=== PATIENT | male | born 1945 | race Caucasian/White ===

== ENCOUNTER 2023-10-30 07:09 | Day surgery (SDC) | payer MEDICARE, OTHER, SELFPAY ==
[2023-10-29 14:36] VITALS: BMI 28.7
[2023-10-30] MEDS: ACETAMINOPHEN 325 MG TABLET 975 MG PO (07:46)
[2023-10-30] MEDS: LACTATED RINGERS 1,000 ML 42 ML IV (07:46)
[2023-10-30] MEDS: OXYMETAZOLINE NASAL SPRAY 30 ML 2 SPRAYS NASAL ×2 (07:47→08:40)
[2023-10-30 07:50] VITALS: BP 154/97; PULSE 69; RESP 16; TEMP 36.8; O2SAT 97; BMI 30.1
--- NOTE | 2023-10-30 08:09 | PM.PREOP ---
Pre-operative Note Interval Note History & Physical reviewed/Exam performed by Physician: Yes Changes to H&P: Yes
--- NOTE | 2023-10-30 08:09 | PM.OP.1 ---
Operative Date/Time/Diagnoses Date of procedure: 10/30/23 Time of procedure: 09:11 Pre-op diagnosis: Recurrent, refractory left epistaxis Post-op diagnosis: same Procedure & Clinicians Procedure: Left endoscopic control of epistaxis Same procedure as scheduled: Yes Indications: 78 Year old with the above diagnoses incompletely managed with prior therapy presents for the above procedure. Following discussion of the material risks benefits complications and alternatives, the patient elected to proceed. Surgeon: Darion Troy Anesthesia Type: General Operative Notes Findings: 1-2 mm raised vascular area left anterior inferior meatus, lateral surface of the inferior turbinate, completely ablated. No other bleeding sources seen. Estimated Blood Loss (mL): 2 Procedure in detail: Following identification and confirmation of consent, as well as preoperative Afrin, the patient was brought to the operating suite and general mask anesthesia was administered. Cotton with 4% lidocaine and Afrin was placed over the anterior septum. The 4mm 30 degree and 70 degree rigid nasal endoscopes were utilized after clot removal to visualize the suspected area of bleeding on the lateral surface of the inferior turbinate anteriorly but just proximal to the prior cauterized area. The head of the inferior turbinate was medialized to improve visualization. Suction electrocautery on a setting of 15 was used to ablate the medial surface of the inferior turbinate under endoscopic guidance. Multiple small pieces of Surgicel were placed in the inferior meatus followed by a few pieces of Surgifoam. I then used a small amount of 1% lidocaine 1 100,000 epinephrine to anesthetize the area. A cotton ball saturated with Polysporin was placed anteriorly to occlude the nostril. He was awakened in the operating room to recovery room in stable condition without known complication. Complications: none Post-operative Condition: stable Disposition: same day surgery Plan for aftercare: Afrin for any bleeding, keep a cotton ball saturated with Polysporin or Vaseline plugging the left nostril at all times, changed daily, for 2 full weeks.
--- NOTE | 2023-10-30 08:37 | SUR.OPER ---
Supine on padded OR bed, head on pillow, left arm secured on padded arm board at <90 degrees abduction, right arm padded and tucked, legs uncrossed, safety belt at thigh.
[2023-10-30] MEDS: LIDOCAINE 4% SOLN 50 ML 20 ML TOP (08:39)
[2023-10-30] MEDS: LIDOCAINE 1% W/EPI 20 ML INJ (08:40)
[2023-10-30] MEDS: BACITRACIN OINT 0.9 GM PCKT 1 APPLIC TOP (08:52)
[2023-10-30 09:09] VITALS: BP 110/60; PULSE 67; RESP 14; TEMP 36.6; O2SAT 95
[2023-10-30 09:15] VITALS: BP 116/74; PULSE 68; RESP 15; O2SAT 95
[2023-10-30 09:20] VITALS: BP 126/79; PULSE 67; RESP 13; O2SAT 93
[2023-10-30 09:25] VITALS: BP 127/79; PULSE 68; RESP 12; TEMP 36.6; O2SAT 94
== END 2023-10-30 09:51 | disposition home or self-care (01) ==
PROVIDERS: Referring Provider Otolaryngology; Visit Provider Otolaryngology
PROC: 093K8ZZ Control Bleeding in Nasal Mucosa and Soft Tissue, Via Natural or Artificial Opening Endoscopic (ICD-10-PCS; CPT 31238; principal; 2023-10-30 08:30)
DX: R04.0 Epistaxis (principal)
CPT/HCPCS: 31238; J1100; J2405; J2704; J3010